=== PATIENT | male | born 1990 | race Caucasian/White ===

== ENCOUNTER 2018-08-12 12:01 | Emergency (ER) | payer SELFPAY ==
[~2018-08-12] VITALS: Ht 165.1 cm; Wt 60.8 kg
[2018-08-12 12:01] VITALS: BP 111/77
--- NOTE | 2018-08-12 12:18 | NUR ---
PATIENT LEFT IN STABLE CONDITION. PRESCRIPTION GIVEN. HEALTH TEACHING AND EDUCATION RENDERED AND ABLE TO UNDERSTAND INSTRUCTIONS.
== END 2018-08-12 12:20 | disposition home or self-care (01) ==
LOC: ER 12:08
DX: S50.361A Insect bite (nonvenomous) of right elbow, initial encounter (principal); S80.861A Insect bite (nonvenomous), right lower leg, initial encounter; L03.113 Cellulitis of right upper limb; Z88.1 Allergy status to other antibiotic agents; W57.XXXA Bitten or stung by nonvenomous insect and other nonvenomous arthropods, initial encounter; Y93.89 Activity, other specified; Y92.89 Other specified places as the place of occurrence of the external cause; Y99.8 Other external cause status
CPT/HCPCS: A4606; Z7610